=== PATIENT | female | born 1955 | race Caucasian/White ===

== ENCOUNTER 2018-09-03 15:15 | Emergency (ER) | payer OTHER ==
--- NOTE | 2018-09-03 15:54 | EDPHYS ---
Physician Documentation [facility] Name: Marycarmen Garner Age: 62 yrs Sex: Female : 1955 Arrival Date: 09/03/2018 Time: 15:19 Bed 16 Private MD: ED Physician Sukh Quinteros HPI: 09/03 15:46 This 62 yrs old Female presents to ER via Ambulatory with complaints of Neck cp Pain, <24hrs Old. 15:46 The patient or guardian complains of mass behind left ear. cp 15:47 The symptoms are located behind left ear. Onset: The symptoms/episode began/occurred at an unknown time. became worse over past couple months. Associated signs and symptoms: Pertinent negatives: fever, difficulty swallowing. Patient reports history of multiple facial skin cancers with removal 18 years ago. Historical: - Allergies: 15:27 No Known Allergies; sv - PMHx: 15:27 None; sv - PSHx: 15:27 Cholecystectomy; Tubal ligation; sv - Immunization history:: Flu vaccine is up to date. - Social history:: Smoking status: Patient uses tobacco products, smokes one-half pack cigarettes per day. - Ebola Screening: : No symptoms or risks identified at this time. ROS: 15:50 All other systems are negative. cp Exam: 15:52 Constitutional: The patient appears in no acute distress, alert, awake, non-toxic, well cp developed, well nourished. 15:52 Head/Face: Normocephalic, atraumatic. cp 15:52 Eyes: Periorbital structures: appear normal, Conjunctiva: normal, no exudate, no injection, Sclera: no appreciated abnormality, Lids and lashes: appear normal, bilaterally. 15:52 ENT: External ear(s): are unremarkable, Ear canal(s): are normal, clear, TM's: dullness, bilaterally, Nose: is normal, Mouth: Lips: moist, Posterior pharynx: Airway: no evidence of obstruction, patent, swelling, is not appreciated, erythema, is not appreciated, exudate, is not appreciated. 15:52 Neck: Lymph nodes: lymphadenopathy is appreciated, anterior cervical nodes, noted raised flesh colored mass with mild tenderness to palpation noted behind left ear . 15:52 Chest/axilla: Inspection: normal, Palpation: is normal, no crepitus, no tenderness. 15:52 Cardiovascular: Rate: tachycardic, Rhythm: regular. 15:52 Respiratory: the patient does not display signs of respiratory distress, Respirations: normal, no use of accessory muscles, no retractions, no splinting, no tachypnea, labored breathing, is not present, Breath sounds: are clear throughout, no decreased breath sounds, no stridor, no wheezing. 15:52 Abdomen/GI: Exam negative for discomfort, distension, guarding, Inspection: abdomen appears normal. 15:52 Neuro: Orientation: to person, place \T\ time. Mentation: lucid, able to follow commands, Cerebellar function: is grossly normal, Motor: moves all fours, strength is normal, Sensation: no obvious gross deficits. Vital Signs: 15:27 BP 167 / 99; Pulse 102; Resp 18; Temp 98.7; Pulse Ox 100% ; Weight 49.9 kg; Height 5 sv ft. 5 in. (165.10 cm); Pain 9/10; 15:27 Body Mass Index 18.31 (49.90 kg, 165.10 cm) sv MDM: 15:33 Patient medically screened. cp 15:35 Differential diagnosis: torticollis, Whiplash Injury skin cancer, lymphadenopathy. cp 15:54 Data reviewed: vital signs, nurses notes, and as a result, I will discharge patient. cp 15:54 Counseling: I had a detailed discussion with the patient and/or guardian regarding: the cp historical points, exam findings, and any diagnostic results supporting the discharge/admit diagnosis, the need for outpatient follow up, for definitive care, a instructional services specialist, to return to the emergency department if symptoms worsen or persist or if there are any questions or concerns that arise at home. Administered Medications: No medications were administered Disposition: 16:15 Chart complete. cp Disposition: 09/03/18 15:54 Discharged to Home. Impression: Disorder of the skin and subcutaneous tissue, unspecified - Behind Left Ear. - Condition is Stable. - Discharge Instructions: Excision of Skin Lesions, Skin Biopsy. - Prescriptions for Anaprox DS 550 mg Oral Tablet - take 1 tablet by ORAL route every 12 hours As needed; 20 tablet. Keflex 500 mg Oral Capsule - take 1 capsule by ORAL route every 8 hours for 10 days; 30 capsule. - Medication Reconciliation Form, Thank You Letter, Antibiotic Education, Prescription Opioid Use form. - Follow up: Gigi Byrnes MD; When: 1 - 2 days; Reason: Recheck today's complaints. - Problem is an ongoing problem. - Symptoms are unchanged. Addendum: 09/05/2018 13:28 Co-signature as Attending Physician, Sukh Quinteros MD I agree with the assessment and k dr plan of care. Signatures: Varsha Luther RN RN Sukh Quinteros MD MD [facility] Paulino Khan PA PA cp Liudmila Medina, JOSEPH RN hb Corrections: (The following items were deleted from the chart) 09/03 16:10 15:54 09/03/2018 15:54 Discharged to Home. Impression: Disorder of the skin and hb subcutaneous tissue, unspecified - Behind Left Ear. Condition is Stable. Forms are Medication Reconciliation Form, Thank You Letter, Antibiotic Education, Prescription Opioid Use. Follow up: Gigi Byrnes; When: 1 - 2 days; Reason: Recheck today's complaints. Problem is an ongoing problem. Symptoms are unchanged. cp
--- NOTE | 2018-09-03 15:54 | ER ---
Nurse's Notes [facility] Name: Marycarmen Garner Age: 62 yrs Sex: Female : 1955 Arrival Date: 09/03/2018 Time: 15:19 Bed 16 Private MD: Diagnosis: Disorder of the skin and subcutaneous tissue, unspecified-Behind Left Ear Presentation: 09/03 15:26 Presenting complaint: Patient states: "spot behind my year that I've had for years but sv for the past couple months it has been hurting and making my neck hurt.". Transition of care: patient was not received from another setting of care. Care prior to arrival: None. 15:26 Method Of Arrival: Ambulatory sv 15:26 Acuity: GABBI 3 sv Historical: - Allergies: 15:27 No Known Allergies; sv - PMHx: 15:27 None; sv - PSHx: 15:27 Cholecystectomy; Tubal ligation; sv - Immunization history:: Flu vaccine is up to date. - Social history:: Smoking status: Patient uses tobacco products, smokes one-half pack cigarettes per day. - Ebola Screening: : No symptoms or risks identified at this time. Screenin:46 Abuse screen: Denies threats or abuse. Denies injuries from another. Nutritional aj1 screening: No deficits noted. Tuberculosis screening: No symptoms or risk factors identified. Assessment: 15:46 General: Appears in no apparent distress. uncomfortable, Behavior is calm, cooperative, aj1 appropriate for age. Pain: Complains of pain in neck Pain does not radiate. Pain currently is 9 out of 10 on a pain scale. Quality of pain is described as sharp, Pain began 2 months ago Is continuous. Neuro: Level of Consciousness is awake, alert, obeys commands. Cardiovascular: Patient's skin is warm and dry. Respiratory: Airway is compromised Respiratory effort is even, unlabored, Respiratory pattern is regular, symmetrical. GI: No signs and/or symptoms were reported involving the gastrointestinal system. : No signs and/or symptoms were reported regarding the genitourinary system. EENT: No signs and/or symptoms were reported regarding the EENT system. Derm: No signs and/or symptoms reported regarding the dermatologic system. Skin is pink, warm \\T\\ dry. normal. Musculoskeletal: Circulation, motion, and sensation intact. Range of motion: intact in all extremities. Vital Signs: 15:27 BP 167 / 99; Pulse 102; Resp 18; Temp 98.7; Pulse Ox 100% ; Weight 49.9 kg; Height 5 sv ft. 5 in. (165.10 cm); Pain 9/10; 15:27 Body Mass Index 18.31 (49.90 kg, 165.10 cm) sv ED Course: 15:19 Patient arrived in ED. as 15:27 Triage completed. sv 15:28 Arm band placed on left wrist. sv 15:33 Paulino Khan PA is PHCP. cp 15:33 Sukh Quinteros MD is Attending Physician. cp 15:46 Adela Lanier, RN is Primary Nurse. aj1 15:46 Patient has correct armband on for positive identification. Bed in low position. Call aj1 light in reach. Side rails up X 1. 15:46 No provider procedures requiring assistance completed. aj1 15:51 Gigi Byrnes MD is Referral Physician. cp Administered Medications: No medications were administered Outcome: 15:54 Discharge ordered by MD. cp 16:10 Patient left the ED. hb Signatures: Aedla Lanier, RN RN aj1 Varsha Luther RN RN Izabel Aldana as Paulino Khan PA PA cp Baxter, Heather, RN RN hb Corrections: (The following items were deleted from the chart) 15:29 15:27 BP 180 / 102; Pulse 102bpm; Resp 18bpm; Pulse Ox 100%; Temp 98.7F; 49.9 kg; sv Height 5 ft. 5 in.; BMI: 18.3; Pain 9/10; sv
== END 2018-09-03 16:10 | disposition home or self-care (01) ==
LOC: ER 15:15
DX: L98.8 Other specified disorders of the skin and subcutaneous tissue (principal); F17.210 Nicotine dependence, cigarettes, uncomplicated; Z85.828 Personal history of other malignant neoplasm of skin
CPT/HCPCS: 99281

== ENCOUNTER 2022-05-06 13:57 | Inpatient (IN) | payer OTHER ==
--- NOTE | 2022-05-06 14:14 | ER ---
Nurse's Notes [facility] Name: Marycarmen Garner Age: 66 yrs Sex: Female : 1955 Arrival Date: 05/06/2022 Time: 14:01 Bed 8 Private MD: Diagnosis: ST elevation (STEMI) myocardial infarction of inferior wall Presentation: 05/06 14:03 Chief complaint: Patient states: Chest pain and not feeling well that began 30 minutes ss ago. Coronavirus screen: Client denies travel out of the [place] in the last 14 days. Ebola Screen: Patient denies exposure to infectious person. Patient denies travel to an Ebola-affected area in the 21 days before illness onset. Initial Sepsis Screen: Does the patient meet any 2 criteria? No. Patient's initial sepsis screen is negative. Does the patient have a suspected source of infection? No. Patient's initial sepsis screen is negative. Risk Assessment: Do you want to hurt yourself or someone else? Patient reports no desire to harm self or others. Onset of symptoms was May 06, 2022. Care prior to arrival: Medication(s) given: ASA 324 mg, Fentanyl 100 mcg IV initiated. 18 GA, in the left antecubital area. 14:03 Method Of Arrival: EMS: [facility] 14:03 Acuity: GABBI 1 ss Historical: - Allergies: 14:06 No Known Allergies; ss - PMHx: 14:06 None; ss - Immunization history:: Client reports receiving the 2nd dose of the Covid vaccine. - Social history:: Smoking status: Patient denies any tobacco usage or history of. - Family history:: not pertinent. - Hospitalizations: : No recent hospitalization is reported. Screenin:25 Abuse screen: Denies threats or abuse. Nutritional screening: No deficits noted. 6 Tuberculosis screening: No symptoms or risk factors identified. Fall Risk None identified. Assessment: 14:22 General: Appears in no apparent distress. uncomfortable, slender, well developed, [facility] Behavior is calm, cooperative. Pain: Pain radiates to left arm Pain currently is 8 out of 10 on a pain scale. Quality of pain is described as aching, dull, Pain began suddenly, 1 hour ago. Cardiovascular: Reports chest pain, Denies fatigue, lightheadedness, nausea, palpitations, Heart tones present Capillary refill < 3 seconds Pulses are all present. Rhythm is regular. Vital Signs: 14:03 BP 168 / 113; Pulse 78; Resp 18; Temp 97.7(TE); Pulse Ox 100% on R/A; Weight 43 kg; ss 14:23 BP 152 / 87; Pulse 86; Resp 18; Temp 97.7(O); Pulse Ox 96% on 2 lpm NC; Pain 8/10; jh6 ED Course: 14:00 Maintain EMS IV. Dressing intact. Good blood return noted. Site clean \T\ dry. Gauge \T\ 6 site: 18g lt ac. 14:01 Patient arrived in ED. ss 14:01 Marcos Vásquez MD is Attending Physician. rn 14:06 Triage completed. ss 14:06 Arm band placed on right wrist. 14:10 Patient has correct armband on for positive identification. Client placed on continuous 6 cardiac and pulse oximetry monitoring. NIBP monitoring applied. electronic device monitor on. Pulse ox on. NIBP on. 14:13 Aristides Vásquez MD is Hospitalizing Provider. rn 14:21 Carol Dubois, JOSEPH is Primary Nurse. [facility] 14:25 Inserted saline lock: 18 gauge in right antecubital area, using aseptic technique. 6 Blood collected. Oxygen administration via nasal cannula \T\ 2L/min. 14:26 No provider procedures requiring assistance completed. 6 14:28 XRAY Chest (1 view) In Process Unspecified. EDMS Administered Medications: 14:21 Drug: Brilinta - Ticagrelor 180 mg Route: PO; [facility] 14:27 Follow up: Response: No adverse reaction [facility] Medication: 14:27 VIS not applicable for this client. [facility] Outcome: 14:13 Decision to Hospitalize by Provider. rn 14:28 Patient left the ED. [facility] Signatures: Dispatcher [employer] EDMS Marcos Vásquez MD MD rn Smirch, Shelby, RN RN Carol Dubois, JOSEPH RN 6 Corrections: (The following items were deleted from the chart) 14:07 14:03 Care prior to arrival: Medication(s) given: ASA 324 mg IV initiated. 18 GA, in the left antecubital area,
--- NOTE | 2022-05-06 14:14 | EDPHYS ---
Physician Documentation [facility] Name: Marycarmen Garner Age: 66 yrs Sex: Female : 1955 Arrival Date: 05/06/2022 Time: 14:01 Bed 8 Private MD: ED Physician Marcos Vásquez HPI: 05/06 14:03 This 66 yrs old Female presents to ER via Unassigned with complaints of chest pain. rn 14:03 The patient or guardian reports chest pain that is located primarily in the substernal rn area. Onset: 30 minute(s) ago. The pain radiates to both arms. Associated signs and symptoms: Pertinent positives: diaphoresis, dizziness, nausea, Pertinent negatives: abdominal pain. The chest pain is described as a heaviness, squeezing. Duration: The patient or guardian reports a single episode. Modifying factors: The symptoms are alleviated by ASA, fentanyl. Severity of pain: At its worst the pain was moderate in the emergency department the pain has improved. The patient has not experienced similar symptoms in the past. The patient has not recently seen a physician. Pt reports 30 min of chest pain, pressure with radiation to both arms, + diaphoresis and nausea. Given aspirin and fentanyl with some improvement. No known medical problems and no meds.. Historical: - Allergies: 14:06 No Known Allergies; ss - PMHx: 14:06 None; ss - Immunization history:: Client reports receiving the 2nd dose of the Covid vaccine. - Social history:: Smoking status: Patient denies any tobacco usage or history of. - Family history:: not pertinent. - Hospitalizations: : No recent hospitalization is reported. ROS: 14:10 Constitutional: Negative for fever, chills, and weight loss, Eyes: Negative for injury, rn pain, redness, and discharge, Neck: Negative for injury, pain, and swelling, Cardiovascular: + chest pain Respiratory: Negative for shortness of breath, cough, wheezing, and pleuritic chest pain, Abdomen/GI: + nausea Back: Negative for injury and pain, MS/Extremity: Negative for injury and deformity, Skin: Negative for injury, rash, and discoloration, Neuro: Negative for headache, weakness, numbness, tingling, and seizure. Exam: 14:10 Constitutional: This is a well developed, well nourished patient who is awake, alert, rn appears anxious Head/Face: Normocephalic, atraumatic. Eyes: Periorbital areas with no swelling, redness, or edema. Cardiovascular: Regular rate, irregular rhythm. No pulse deficits. Respiratory: No increased work of breathing, no retractions or nasal flaring. Abdomen/GI: Soft, non-tender Skin: Warm, diaphoretic MS/ Extremity: Pulses equal, no cyanosis. Neurovascular intact. Full, normal range of motion. Equal circumference. Neuro: Awake and alert, GCS 15 Vital Signs: 14:03 BP 168 / 113; Pulse 78; Resp 18; Temp 97.7(TE); Pulse Ox 100% on R/A; Weight 43 kg; ss 14:23 BP 152 / 87; Pulse 86; Resp 18; Temp 97.7(O); Pulse Ox 96% on 2 lpm NC; Pain 8/10; jh6 MDM: 14:02 Patient medically screened. rn 14:10 Differential diagnosis: acute myocardial infarction, coronary artery disease stable rn angina, unstable angina. HEART Score: History: Highly Suspicious (2), ECG: Significant ST-deviation (2), Age: > or = 65 years (2), Risk Factors: No Risk Factors Known (0), Troponin: < or = 1 x Normal Limit (0), Total Score = 6. The patient was not given aspirin in the Emergency Department. Administered by EMS. Data reviewed: vital signs, nurses notes, EKG, and as a result, I will admit patient. Counseling: I had a detailed discussion with the patient and/or guardian regarding: the historical points, exam findings, and any diagnostic results supporting the discharge/admit diagnosis, the need for further work-up and treatment in the hospital. ED course: Consulted with Dr. Jasso, kvng ambrosio 180 right now, and he will start heparin in [facility], going straight to [facility] now. . 05/06 14:02 Order name: Basic Metabolic Panel rn 05/06 14:02 Order name: CBC with Diff rn 05/06 14:02 Order name: Troponin HS rn 05/06 14:02 Order name: XRAY Chest (1 view) rn 05/06 14:02 Order name: BNP rn 05/06 14:02 Order name: SARS-COV-2 RT PCR (Document "Date of Onset" if Symptomatic) rn 05/06 14:02 Order name: EKG; Complete Time: 14:03 rn 05/06 14:02 Order name: Cardiac monitoring; Complete Time: 14:07 rn 05/06 14:02 Order name: EKG - Nurse/Tech; Complete Time: 14:07 rn 05/06 14:02 Order name: IV Saline Lock; Complete Time: 14:07 rn 05/06 14:02 Order name: Labs collected and sent; Complete Time: 14: rn 05/06 14:02 Order name: O2 Per Protocol; Complete Time: 14: rn 05/06 14:02 Order name: O2 Sat Monitoring; Complete Time: 14:07 rn Administered Medications: 14:21 Drug: Brilinta - Ticagrelor 180 mg Route: PO; [facility] 14:27 Follow up: Response: No adverse reaction [facility] Disposition Summary: 05/06/22 14:13 Hospitalization Ordered Hospitalization Status: Inpatient Admission rn Provider: Aristides Vásquez rn Location: Intensive Care Unit rn Condition: Stable rn Problem: new rn Symptoms: have improved rn Bed/Room Type: Standard rn Room Assignment: rn Diagnosis - ST elevation (STEMI) myocardial infarction of inferior wall rn Forms: - Medication Reconciliation Form rn - SBAR form rn Signatures: Dispatcher [employer] EDMarcos Garnica MD MD rn Smirch, Shelby, RN RN ss Hastedt, Jennifer RN RN jh6
[2022-05-06] MEDS ORDERED: TICAGRELOR 90 MG TABLET PO ONE ×2 (14:15→14:17)
[2022-05-06 14:38] LABS: Absolute Lymphocytes (CBC) 1.8 K/uL (0.7-4.9); Hematocrit 33.6 % (36.0-45.0); Lymphocytes % 14.4 % (15.3-44.8); MPV 8.5 fL (7.6-11.3)
--- NOTE | 2022-05-06 14:38 | RAD REPORT ---
EXAM DESCRIPTION: RAD - Chest Single View - 05/06/2022 2:26 pm CLINICAL HISTORY: CHEST PAIN Chest pain. COMPARISON: Chest Pa And Lat (2 Views) dated 10/20/2017; Chest Single View dated 10/19/2017 FINDINGS: Portable technique limits examination quality. The lungs are emphysematous but grossly clear. The heart is normal in size. No displaced fractures. IMPRESSION: Prominent COPD.
[2022-05-06] MEDS ORDERED: NITROGLYCERIN 100 MCG/ML SYR (for cath lab use only) IV ONE (14:42)
[2022-05-06] MEDS ORDERED: HEPARIN 5000 UNIT/ML 1 ML VIAL ONE (14:42)
[2022-05-06] MEDS ORDERED: FENTANYL CITR 100 MCG/2 ML ONE (14:42)
[2022-05-06] MEDS ORDERED: ATROPINE SULF 1 MG/10 ML SYR IV ONE (14:42)
[2022-05-06] MEDS ORDERED: HEPARIN 10,000 UNIT/10 ML VIAL IV ONE (14:42)
[2022-05-06] MEDS ORDERED: VERAPAMIL HCL 10 MG/4 ML VIAL IV ONE (14:42)
[2022-05-06] MEDS ORDERED: NA CHLORIDE 0.9% 500 ML ONE (14:48)
[2022-05-06 14:53] LABS: Troponin High Sensitivity 117.5 pg/mL (<58.9)
[2022-05-06] MEDS ORDERED: ACETAMINOPHEN 500 MG TAB PO PRN (14:59)
[2022-05-06] MEDS ORDERED: ALBUTEROL INHALER 60 PUFF/8 GM IH PRN (15:04)
[2022-05-06] MEDS ORDERED: HEPA 1000U/500MLS 1,000 UNIT/500 ML BAG IV ONE (15:04)
[2022-05-06] MEDS ORDERED: HYDRALAZINE HCL 20 MG/ML VIAL IV PRN (15:06)
--- NOTE | 2022-05-06 15:06 | P.HP ---
Certification for Inpatient Patient admitted to: Inpatient With expected LOS: >2 Midnights Patient will require the following post-hospital care: None Practitioner: I am a practitioner with admitting privileges, knowledge of patient current condition, hospital course, and medical plan of care. Services: Services provided to patient in accordance with Admission requirements found in Title 42 Section 412.3 of the Code of Federal Regulations Patient History Date of Service: 05/06/22 Reason for admission: Chest pain History of Present Illness: Patient is a 66-year-old female with a past medical history significant for COPD, hepatitis B, hepatitis C, nicotine dependence who presents with complaint of chest pain located in the substernal chest area. Patient reported that she was driving today when she suddenly started having chest pain which radiated to her bilateral shoulders and arms. Patient rated pain as 10/10 and described pain as pressure\squeezing in quality. Patient reports associated signs and symptoms of nausea, dizziness, Shortness of breath, headache and diaphoresis. Patient denies any other signs and symptoms. Symptoms are aggravated or relieved by nothing. Patient decided to present to the hospital due to worsening symptoms. Allergies No Known Allergies Allergy (Unverified 10/19/17 16:29) Home Medications: Albuterol Inhaler [Ventolin Inhaler*] 2 puff IH Q6H PRN #1 hfa.aer.ad 10/20/17 Albuterol Neb [Proventil 0.083% Neb Soln] 2.5 mg NEB [id number] #3 amp 10/20/17 Azithromycin [Zithromax] 500 mg PO DAILY #7 tablet 10/20/17 Budesonide/Formoterol Fumarate [Symbicort 160-4.5 Mcg Inhaler] 2 puff IH BID #3 hfa.aer.ad 10/20/17 Ipratropium Neb [Atrovent*] 0.5 mg NEB [id number] #3 amp 10/20/17 - Past Medical/Surgical History Diabetic: No Past Medical History: Patient denies medical history -: COPD -: Hepatitis B -: Hepatitis C -: Tubal Ligation - Family History Family History: Reviewed- Non-Contributory - Social History Smoking Status: Current every day smoker Smoking therapy provided: Yes Patient receptive to therapy: Yes Alcohol use: No CD- Drugs: Yes Caffeine use: No Place of Residence: Home Review of Systems General: Sweats Eyes: Unremarkable ENT: Unremarkable Respiratory: Shortness of Breath Cardiovascular: Chest Pain Gastrointestinal: Nausea Genitourinary: Unremarkable Musculoskeletal: Shoulder Pain, Arm Pain Integumentary: Unremarkable Neurological: Other (Dizziness, Headache ) Lymphatics: Unremarkable Physical Examination - Vital Signs Temperature: 97.7 F Blood Pressure: 152/87 Pulse: 86 Respirations: 18 - Physical Exam General: Alert, Oriented x3, Cooperative, Moderate distress HEENT: Normocephalic, PERRLA Neck: 2+ carotid pulse no bruit, JVD not distended Respiratory: Normal air movement Cardiovascular: Normal pulses, Regular rate/rhythm Capillary refill: <2 Seconds Gastrointestinal: Normal bowel sounds, Soft and benign Musculoskeletal: No clubbing, No contractures, No erythema Integumentary: No rashes, No breakdown, No erythema Neurological: Normal speech, Normal tone, Sensation intact Lymphatics: No axilla or inguinal lymphadenopathy - Studies Laboratory Data (last 24 hrs) 05/06/22 14:15: WBC 12.4 H, Hgb 11.7 L, Hct 33.6 L, Plt Count 240 05/06/22 14:15: Sodium 134 L, Potassium 3.0 L, BUN 12, Creatinine 0.72, Glucose 168 H Assessment and Plan - Plan --STEMI. Noted on EKG. Cardiology consulted. Patient taken emergently to [facility]. Echocardiogram pending to assess LV\valvular functions and wall motion. Telemetry to monitor for any malignant arrhythmia. Troponin elevated. We will continue to trend troponin levels. Continue heparin drip. We will await further recommendation from parachute harness rigger. --Acute pain. We will manage pain with current pain medication regimen. --Acute on chronic COPD exacerbation. Continue home medications and O2 therapy. --History of hep C\hep B. Continue supportive care. --Nicotine dependence. Patient counseled on tobacco cessation and placed on nicotine patch. --Anemia of chronic disease. H&H stable. We will continue to monitor hem oglobin and transfuse if less than 7.0. --Leukocytosis. Likely reactive. Will reassess levels in the a.m. --Severe protein calorie normal nutrition. Dietitian consulted. Will await further recommendation. --Hypokalemia. Replete as needed. --Elevated BNP. Echocardiogram pending. Further management per parachute harness rigger. -- Elevated blood pressure. No history of hypertension noted. We will manage BP with labetalol as needed. --Headache. Tylenol as needed. --DVT prophylaxis with heparin Drip Discharge Plan: Home Plan to discharge in: 72 Hours - Advance Directives Does patient have a Living Will: No Does patient have a Durable POA for Healthcare: No - Code Status/Comfort Care Code Status Assessed: Yes Code Status: Full Code Physician Review: Patient Assessed, Agree with Above Assessment and Plan Critical Care: No
[2022-05-06] MEDS ORDERED: ADENOSINE 6 MG/ 2ML VIAL IV ONE (15:08)
[2022-05-06] MEDS ORDERED: HEPARIN/D5W 25,000 UNIT/500 ML BAG IV SCH (16:00)
[2022-05-06] MEDS: IPRATROPIUM BROM 0.5MG/2.5ML NEB SCH ×2 (16:00→20:55)
--- NOTE | 2022-05-06 16:11 | CON ---
Date of Consultation: 05/06/2022 Reason For Consultation: ST elevation [place]. History Of Present Illness: A 66-year-old female presented to the emergency room with 30 minutes ons et of crushing pressure type of chest pain that radiates to the left arm. Her arm was hurting more t [place] the chest, became sweaty, nauseated and diaphoretic, presented to the emergency room. An EKG was done, showed inferior ST elevation [place]. I was contacted at 2:10 p.m., saw the patient and immediatel y took the patient to the labor standards director for emergency coronary angiogram and PCI. The patient denies havi ng any other medical history, but she smokes about 5-6 cigarettes a day. Past Medical History: None. Medications: None. Allergies: NO KNOWN DRUG ALLERGIES. Family History: No premature coronary artery disease or cancer. Social History: She is a smoker. She smokes 4-5 cigarettes a day. Does not drink or use no drugs. Review of Systems: All systems reviewed and negative except for what mentioned in HPI. Physical Examination: Vital Signs: Reviewed. Head and Neck: Pupils are equal, reactive to light. Intact eye movements. No JVD. No cervical lym phadenopathy. Neck is supple. Thyroid is not enlarged. Lungs: Clear to auscultation bilaterally. No rhonchi, rales, or crackles. No accessory muscle use. Heart: Regular rate and rhythm. No extra sounds. Abdomen: Soft, nontender. Bowel sounds positive. No organomegaly. No masses or hernia. No rigidi ty or rebound. Extremities: No clubbing, cyanosis. Intact pulses. Skin: No rash. Neurologic: Alert, awake, oriented x3. No acute focal deficits appreciated. Investigations: No blood work is back yet; however, the EKG showed inferior ST elevation [place]. Assessment And Recommendations: 1.Inferior ST elevation myocardial infarction. I loaded the patient with Brilinta 180 and aspirin a nd we will take the patient for immediate coronary angiogram and percutaneous coronary intervention o f the culprit vessel. 2.Smoker. This will be discussed further with the patient postprocedure to teen counselor her to quit smok ing. SR/MODL Voice ID: [id number] Report ID: [id number]
--- NOTE | 2022-05-06 16:17 | OP ---
Date of Procedure: 05/06/2022 Surgeon: JASON EDOUARD Procedures Performed: 1.Selective coronary angiogram. 2.PCI of mid left circumflex 100% occlusion, which is a culprit for the ST-elevation myocardial infa rction. Indication: ST-elevation myocardial infarction. It is an inferior ST elevation. Access: Right femoral artery 6-Mexican closed with 6-Mexican Angio-Seal. Complications: None. Bleeding: Less than 20 mL. Anesthesia: Total sedation time was 65 minutes and used fentanyl and Versed. Description Of Procedure: After risks, benefits, and alternatives were explained, the patient agreed to procedure and signed informed consent. The patient was brought into the cardiac catheterization laboratory in an emergency basis due to ST-elevation VT and she was prepped and draped in usual steri le fashion. Then, I accessed right femoral artery using micropuncture kit, ultrasound guidance and f luoroscopy by 6-Mexican [place] sheath and took a 6-Mexican JL4 catheter into aortic root and engaged the left main, took standard views and took a 6-Mexican JR4 catheter into the aortic root, engaged the RCA and then we gave systemic heparin to assure ACT level above 250. The patient received Brilinta and aspirin into the emergency room. I took a 6-Mexican JL4 guide into the aortic root, engaged the l eft main, took a Run-Through wire into the left main and the left circumflex passing the area of sten osis. The mid left circumflex was ballooned successfully restoring ESTHER 2 flow and then placed a 3.5 x 20 mm Synergy drug-eluting stent and there was some edge dissection distally, so I placed a 3.0 x 8 mm to overlap with the first stent and post dilated the overlap to high-pressure and gave 600 mcg o f adenosine and 20 mcg of nitroglycerin intracoronary and established ESTHER-3 flow in the vessel. The n, took standard views post procedure, they were satisfactory. I removed the catheter and the wire a nd the sheath, and used a 6-Mexican Angio-Seal with good hemostasis. Findings: 1.Left main; large, normal. 2.LAD is proximal. It is more diffuse 20% and diagonal 1 branch has 90% ostially and the rest of th e LAD looks normal. 3.Left circumflex; very large and dominant vessel with mid 100% occlusion with a thrombus formation, which is a culprit for the STEMI, status post successful PCI as above with druze of ESTHER-3 jazmin w. 4.RCA; small, non-dominant with mid diffuse 50% stenosis. Conclusion: 1.100% occlusion of the mid left circumflex, which is a dominant vessel and the culprit for the VT, status post successful PCI as above. 2.Mild coronary artery disease elsewhere. Plan: 1.Continue Brilinta, aspirin, and high-dose statin and obtain echocardiogram on her in the morning. 2.Start low-dose beta kylee 25 mg twice a day and metoprolol if possible and low-dose JO inhibito r if the blood pressure allows. SR/MODL Voice ID: [id number] Report ID: [id number]
[2022-05-06 16:50] LABS: Thyroid Stimulating Hormone 1.51 uIU/mL (0.360-3.740)
[2022-05-06] MEDS ORDERED: HOME MED 1 EA UNK [ALBUTEROL INHALER 60 PUFF/8 GM] IH PRN (16:51)
[2022-05-06] MEDS ORDERED: LABETALOL 20 MG/4ML SYRINGE IV PRN (17:22)
[2022-05-06 18:25] VITALS: BMI 16.9
[2022-05-06] MEDS: HEPARIN/D5W 25,000 UNIT/500 ML BAG IV PRN (18:27)
[2022-05-06] MEDS: METOPROLOL TAR 25 MG TAB PO SCH (18:31)
[2022-05-06] MEDS: NICOTINE 21 MG/PAT TD SCH (18:32)
[2022-05-06] MEDS: HYDROCODONE/APAP 5/325 MG TAB PO PRN (18:44)
[2022-05-06] MEDS ORDERED: CALCIUM CARBONATE CHEW 500MG TAB PO PRN (19:58)
[2022-05-06] MEDS: ONDANSETRON 4 MG/2 ML VIAL IV PRN (20:19)
[2022-05-06] MEDS: ATORVASTATIN 80 MG TAB PO SCH (20:23)
[2022-05-06] MEDS: TICAGRELOR 90 MG TABLET PO SCH (20:24)
[2022-05-06] MEDS: HOME MED 1 EA UNK (Budesonide/Formoterol Fumarate [Symbicort 160-4.5 Mcg Inhaler] 10.2 GM IH SCH (21:00)
[2022-05-07] MEDS: HEPARIN/D5W 25,000 UNIT/500 ML BAG IV PRN (00:07)
[2022-05-07] MEDS: IPRATROPIUM BROM 0.5MG/2.5ML NEB SCH ×3 (00:20→08:30)
[2022-05-07] MEDS: HYDROCODONE/APAP 5/325 MG TAB PO PRN ×3 (01:07→20:51)
[2022-05-07 05:45] LABS: Protime INR 1.1
[2022-05-07 06:30] LABS: Albumin 3.3 g/dL (3.4-5.0); Bilirubin Total 0.4 mg/dL (0.2-1.0); Phosphorus 3.1 mg/dL (2.5-4.9); Potassium 3.2 mmol/L (3.5-5.1)
[2022-05-07] MEDS ORDERED: PNEUMOCOCCAL VACCINE 0.5 ML IMVAC ONE (08:00)
[2022-05-07] MEDS ORDERED: HEPARIN 5000 UNIT/ML 1 ML VIAL SQ SCH (09:00)
[2022-05-07] MEDS: TICAGRELOR 90 MG TABLET PO SCH ×3 (09:00→20:51)
[2022-05-07] MEDS: HOME MED 1 EA UNK (Budesonide/Formoterol Fumarate [Symbicort 160-4.5 Mcg Inhaler] 10.2 GM IH SCH ×2 (09:00→21:00)
[2022-05-07] MEDS: ASPIRIN 325 MG TAB PO SCH (09:25)
[2022-05-07] MEDS: NICOTINE 21 MG/PAT TD SCH (09:26)
[2022-05-07] MEDS: METOPROLOL TAR 25 MG TAB PO SCH ×2 (09:26→17:38)
[2022-05-07] MEDS ORDERED: IPRATROPIUM BROM 0.5MG/2.5ML NEB PRN (09:30)
--- NOTE | 2022-05-07 11:08 | EKG ---
Test Date: 2022-05-06 Test Time: 13:57:09 Health Consultant: MEASUREMENT RESULTS: Intervals: Rate: 101 OR: QRSD: 80 QT: 358 QTc: 464 [place]: P: OR: QRS: 60 T: 89 INTERPRETIVE STATEMENTS: Atrial fibrillation with rapid ventricular response with premature ventricular or aberrantly conducted complexes ST elevation, consider inferior injury or acute infarct ACUTE TX / STEMI Consider right ventricular involvement in acute inferior infarct Abnormal ECG Compared to ECG 10/19/2017 13:24:47 Ventricular premature complex(es) now present ST (T wave) deviation now present Myocardial infarct finding now present Myocardial infarct finding now present Sinus rhythm no longer present Electronically Signed On 05-07-22 11:05:00 CDT by Brodie Tam
--- NOTE | 2022-05-07 12:53 | PN ---
Date of Progress Note: 05/07/2022 Subjective: Ms. Graner is 66. Came in with ST elevation myocardial infarction, underwent a circumflex stent by Dr. Jasso yesterday. Had significant amount of thrombus, remained on heparin. Continues to have some bilateral arm pain that is mild. Objective: Vital Signs: Stable. She was afebrile. Chest: Clear. Cardiac: Normal. : Her right groin entry site is normal without any hematoma. Extremities: She has good distal pulses. Impression And Plan: Status post circumflex stent with residual thrombus. Continue heparin. Contin ue aspirin. Continue Brilinta, Lipitor, and metoprolol. We will consider discontinuing heparin some time this evening if she is pain-free, but I will keep the patient at least till tomorrow before we send her home. KAVYA/PAIGE Voice ID: [id number] Report ID: [id number]
--- NOTE | 2022-05-07 13:33 | P.PN ---
Subjective Date of Service: 05/07/22 Chief Complaint: Chest pain Cardiac catheterization yesterday with circumflex stented. Patient also noted to have about vessel disease for which medical therapy has been recommended. She is complaining of nausea. Blood pressure has been stable.. Physical Examination - Vital Signs Temperature: 97.3 F Blood Pressure: 104/67 Pulse: 75 Respirations: 22 Pulse Ox (%): 99 - Physical Exam General: Alert, In no apparent distress, Oriented x3 HEENT: Mucous membr. moist/pink Neck: Supple, JVD not distended Respiratory: Clear to auscultation bilaterally, Normal air movement Cardiovascular: No edema, Regular rate/rhythm, Normal S1 S2, No murmurs Capillary refill: <2 Seconds Gastrointestinal: Normal bowel sounds, Soft and benign, Non-distended, No tenderness Musculoskeletal: No swelling, No tenderness, Other (Right groin cardiac cath entry site-no bleeding) Integumentary: No rashes, No erythema Neurological: Normal speech, Normal strength at 5/5 x4 extr, Cranial nerves 3-12 intact - Studies Laboratory Data (last 24 hrs) 05/06/22 14:15: WBC 12.4 H, Hgb 11.7 L, Hct 33.6 L, Plt Count 240 05/06/22 14:15: Sodium 134 L, Potassium 3.0 L, BUN 12, Creatinine 0.72, Glucose 168 H Assessment And Plan - Current Problems (Diagnosis) (1) STEMI (ST elevation myocardial infarction) Current Visit: Yes Status: Acute (2) COPD (chronic obstructive pulmonary disease) Current Visit: Yes Status: Acute - Plan Status post cardiac catheterization and circumflex artery stented. Patient with other vessel disease. Continue aspirin, Brilinta, Lipitor, metoprolol. Monitor blood pressure. On heparin drip to be discontinued tonight per cardiology. Continue bronchodilators. Leukocytosis is likely reactive. Patient is currently normotensive. Diet as tolerated. Physician Review: Patient Assessed, Agree with Above Assessment and Plan
[2022-05-07] MEDS: ONDANSETRON 4 MG/2 ML VIAL IV PRN ×2 (13:51→20:50)
[2022-05-07] MEDS ORDERED: POTASSIUM CL SA 10 MEQ TAB PO ONE (18:00)
[2022-05-07 19:41] LABS: Urine Appearance Cloudy (Clear); Urine Bilirubin Negative (Negative); Urine Blood 1+ (Negative); Urine Color Yellow (Yellow); Urine Glucose Negative (Negative); Urine Protein Trace (Negative); Urine Specific Gravity >=1.030 (1.005-1.030)
[2022-05-07 19:45] LABS: Urine Microscopic Reflex ORDER UMIC
[2022-05-07 19:48] LABS: Urine Bacteria NONE SEEN /HPF (<20); Urine Mucus 1+ /HPF (NONE SEEN)
[2022-05-07] MEDS: ATORVASTATIN 80 MG TAB PO SCH (20:51)
[2022-05-08 05:12] LABS: Absolute Lymphocytes (CBC) 1.3 K/uL (0.7-4.9); Hematocrit 32.2 % (36.0-45.0); Lymphocytes % 18.2 % (15.3-44.8); MPV 8.5 fL (7.6-11.3); RBC Red Blood Cell Count 3.69 M/uL (3.86-4.86)
[2022-05-08 05:29] LABS: Potassium 4.3 mmol/L (3.5-5.1)
[2022-05-08] MEDS: METOPROLOL TAR 25 MG TAB PO SCH (06:00)
--- NOTE | 2022-05-08 08:15 | ECHO ---
HEIGHT: 5 ft 4 in WEIGHT: 98 lb 11.2 oz DATE OF STUDY: 05/07/[address]: Case Cid 2-DIMENSIONAL: YES M.MODE: YES DOPPLER: YES COLOR FLOW: YES TDS: PORTABLE: YES DEFINITY: BUBBLE STUDY: DIAGNOSIS: NON ST ELEVATION MYOCARDIAL INFARCTION CARDIAC HISTORY: CATHERIZATION: YES SURGERY: NO PROSTHETIC VALVE: NO PACEMAKER: NO MEASUREMENTS (cm) DIASTOLIC (NORMALS) SYSTOLIC (NORMALS) IVSd 1.0 (0.6-1.2) LA Diam 2.4 (1.9-4.0) LVEF 45-50% LVIDd 3.1 (3.5-5.7) LVIDs 2.4 (2.0-3.5) %FS 24% LVPWd 1.0 (0.6-1.2) Ao Diam 2.3 (2.0-3.7) 2 DIMENSIONAL ASSESSMENT: RIGHT ATRIUM: NORMAL LEFT ATRIUM: NORMAL RIGHT VENTRICLE: NORMAL LEFT VENTRICLE: NORMAL TRICUSPID VALVE: NORMAL MITRAL VALVE: NORMAL PULMONIC VALVE: NORMAL AORTIC VALVE: NORMAL PERICARDIAL EFFUSION: NONE AORTIC ROOT: NORMAL LEFT VENTRICULAR WALL MOTION: MILD GLOBAL HYPOKINESIS DOPPLER/COLOR FLOW: NORMAL COMMENTS: MILD GLOBAL HYPOKINESIS. EJECTION FRACTION 45-50%. NO EFFUSION. TECHNOLOGIST: DENIA LEONARD
[2022-05-08] MEDS: NICOTINE 21 MG/PAT TD SCH (08:18)
[2022-05-08] MEDS: TICAGRELOR 90 MG TABLET PO SCH (08:18)
[2022-05-08] MEDS: ASPIRIN 325 MG TAB PO SCH (08:19)
[2022-05-08 08:29] VITALS: O2SAT 99
[2022-05-08] MEDS: HYDROCODONE/APAP 5/325 MG TAB PO PRN (08:34)
--- NOTE | 2022-05-08 08:50 | P.DS ---
Admission Date: 05/06/22 Discharge Date: 05/08/22 Disposition: ROUTINE DISCHARGE Discharge Condition: FAIR Reason for Admission: Chest pain - Problems (1) STEMI (ST elevation myocardial infarction) Current Visit: Yes Status: Acute (2) COPD (chronic obstructive pulmonary disease) Current Visit: Yes Status: Acute Brief History of Present Illness: Patient is a 66-year-old female with a past medical history significant for COPD, hepatitis B, hepatitis C, nicotine dependence who presents with complaint of chest pain located in the substernal chest area. Patient reported that she was driving when she suddenly started experiencing chest pain which radiated to her bilateral shoulders and arms. Patient rated pain as 10/10 and described pain as pressure\squeezing in quality. Patient reported associated signs and symptoms of nausea, dizziness, Shortness of breath, headache and diaphoresis. She presented to the emergency department where EKG demonstrated STEMI. STEMI protocol initiated, cardiology informed and patient hospitalized for further management. Hospital Course: Patient seen by cardiology, started on heparin drip and and emergent cardiac catheterization performed. 100% occlusion of the left mid circumflex artery noted which was stented Patient placed on aspirin and Brilinta. Cardiology report other cardiac vessel diseases recommended medical management. She was also on Lipitor and metoprolol Her blood pressure was soft She was monitored overnight with no events. Patient states she feels better today though noted mild lingering chest pain. Patient is currently tolerating diet, she is ambulatory. Seen by cardiology-Dr. Tam today and deemed stable for discharge. Vital Signs/Physical Exam: Temp Pulse Resp BP Pulse Ox 96.7 F L 74 19 93/49 L 100 05/08/22 04:00 05/08/22 06:00 05/08/22 06:00 05/08/22 06:00 05/08/22 06:00 General: Alert, In no apparent distress, Oriented x3 HEENT: Mucous membr. moist/pink Neck: Supple, JVD not distended Respiratory: Clear to auscultation bilaterally, Normal air movement Cardiovascular: No edema, Regular rate/rhythm, Normal S1 S2 Gastrointestinal: Soft and benign, Non-distended Musculoskeletal: No swelling Integumentary: No rashes, No erythema Neurological: Normal strength at 5/5 x4 extr Laboratory Data at Discharge: WBC 7.2 K/uL (4.3-10.9) D 05/08/22 04:39 Hgb 11.3 g/dL (12.0-15.0) L 05/08/22 04:39 Hct 32.2 % (36.0-45.0) L 05/08/22 04:39 Plt Count 210 K/uL (152-406) 05/08/22 04:39 PT 12.1 SECONDS (9.5-12.5) 05/07/22 04:24 INR 1.10 05/07/22 04:24 APTT Cancelled 05/07/22 18:45 Sodium 131 mmol/L (136-145) L 05/08/22 04:39 Potassium 4.3 mmol/L (3.5-5.1) 05/08/22 04:39 BUN 15 mg/dL (7-18) 05/08/22 04:39 Creatinine 0.61 mg/dL (0.55-1.3) 05/08/22 04:39 Glucose 87 mg/dL (74-106) 05/08/22 04:39 Phosphorus 3.1 mg/dL (2.5-4.9) 05/07/22 04:24 Magnesium 2.0 mg/dL (1.8-2.4) 05/07/22 04:24 Total Bilirubin 0.4 mg/dL (0.2-1.0) 05/07/22 04:24 AST 184 U/L (15-37) H 05/07/22 04:24 ALT 30 U/L (12-78) 05/07/22 04:24 Alkaline Phosphatase 140 U/L (45-117) H 05/07/22 04:24 Triglycerides 68 mg/dL (<150) 05/07/22 04:24 Cholesterol 202 mg/dL (<200) H 05/07/22 04:24 HDL Cholesterol 62 mg/dL (40-60) H 05/07/22 04:24 Cholesterol/HDL Ratio 3.26 05/07/22 04:24 Home Medications: Aspirin [Aspirin EC 81 MG] 81 mg PO DAILY #30 tablet.dr 05/08/22 Atorvastatin Calcium [Lipitor] 80 mg PO BEDTIME #30 tab 05/08/22 Budesonide/Formoterol Fumarate [Symbicort 160-4.5 Mcg Inhaler] 2 puff IH BID #1 hfa.aer.ad 05/08/22 Metoprolol Tartrate [Lopressor*] 25 mg PO BID 6AM 6PM #30 tab 05/08/22 Nicotine [Nicoderm*] 21 mg TD DAILY #30 patch.td24 05/08/22 Ticagrelor [Brilinta*] 90 mg PO BID #60 tablet 05/08/22 New Medications: Aspirin [Aspirin EC 81 MG] 81 mg PO DAILY #30 tablet. Ticagrelor [Brilinta*] 90 mg PO BID #60 tablet Atorvastatin Calcium [Lipitor] 80 mg PO BEDTIME #30 tab Metoprolol Tartrate [Lopressor*] 25 mg PO BID 6AM 6PM #30 tab Nicotine [Nicoderm*] 21 mg TD DAILY #30 patch.td24 Budesonide/Formoterol Fumarate [Symbicort 160-4.5 Mcg Inhaler] 2 puff IH BID #1 hfa.aer.ad Physician Discharge Instructions: Referral to Cardiac Rehab. Diagnosis; STEMI 121.09 Diet: AHA Activity: Ad rm Followup: NONE,NONE [Primary Care Provider] - Jamie Jasso MD [ACTIVE - CAN ADMIT] - 1 Week Time spent managing pt's care (in minutes): 38
[2022-05-08] MEDS: HOME MED 1 EA UNK (Budesonide/Formoterol Fumarate [Symbicort 160-4.5 Mcg Inhaler] 10.2 GM IH SCH (09:00)
[2022-05-08 11:06] VITALS: TEMP 96.9
[2022-05-08 11:07] VITALS: BP 98/77
--- NOTE | 2022-05-09 20:44 | PN ---
Date of Progress Note: 05/08/2022 Ms. Garner came in with an ST-elevation myocardial infarction, underwent an emergency circumflex stent. Has a lot of thrombosis. She is now on Brilinta, Lipitor, heparin, and metoprolol. Asymptomatic, sinus rhythm. Groin site is intact. Good distal pulses. We will continue heparin for another 24 ho urs and will discontinue her later on Brilinta, Lipitor, metoprolol, and aspirin. She will follow up with us in the office in 2 weeks. Echocardiogram showed an ejection fraction of 45% to 50% with mil d global hypokinesis. Continue present regimen for now. Case was discussed with Dr. Vásquez. KAVYA/PAIGE Voice ID: [id number] Report ID: [id number]
== END 2022-05-08 10:50 | disposition home or self-care (01) | DRG 246 ==
LOC: ER 13:57 → ERHOLD 14:54 → 3RD-ICU 18:00
PROVIDERS: ADMIT Hospitalist; ATTEND Hospitalist
PROC: 027035Z Dilation of Coronary Artery, One Artery with Two Drug-eluting Intraluminal Devices, Percutaneous Approach (ICD-10-PCS; principal; 2022-05-06)
PROC: B2011ZZ Plain Radiography of Multiple Coronary Arteries using Low Osmolar Contrast (ICD-10-PCS; 2022-05-06)
DX: I21.21 ST elevation (STEMI) myocardial infarction involving left circumflex coronary artery (principal); E43 Unspecified severe protein-calorie malnutrition; B18.1 Chronic viral hepatitis B without delta-agent; J44.1 Chronic obstructive pulmonary disease with (acute) exacerbation; Z68.1 Body mass index [BMI] 19.9 or less, adult; I25.10 Atherosclerotic heart disease of native coronary artery without angina pectoris; B18.2 Chronic viral hepatitis C; D63.8 Anemia in other chronic diseases classified elsewhere; E87.6 Hypokalemia; R51.9 Headache, unspecified; F17.210 Nicotine dependence, cigarettes, uncomplicated; Z23 Encounter for immunization; Z20.822 Contact with and (suspected) exposure to COVID-19
CPT/HCPCS: 36415; 71045; 80048; 80053; 80061; 81003; 81015; 83735; 83880; 84100; 84439; 84443; 84484; 85025; 85347; 85610; 85730; 90471; 93005; 93306; 93454; 99285; C1725; C1760; C1893; C9600; G0269; J0153; J0360; J1644; J2405; J3010; J7040; Q9967; U0003

== ENCOUNTER 2024-11-25 10:55 | Day surgery (SDC) | payer OTHER ==
[2024-11-22 13:58] LABS: Absolute Eosinophils 0.4 K/uL (0-0.5); Absolute Lymphocytes (CBC) 1.2 K/uL (0.7-4.9); Absolute Monocytes 0.5 K/uL (0.1-1.3); Absolute Neutrophil 4.4 K/uL (1.8-8.0); Basophils % 0.5 % (0-1.3); Eosinophils % 6.9 % (0-4.4); Hematocrit 37.1 % (36.0-45.0); Hemoglobin 12.3 g/dL (12.0-15.0); Lymphocytes % 17.7 % (15.3-44.8); MCH 30.1 pg (27.0-35.0); MCV 91.1 fL (80-100); MPV 8.2 fL (7.6-11.3); Monocytes % 7.5 % (3.3-12.3); Neutrophils % 67.4 % (41.7-73.7); Platelets 212 thou/uL (152-406); RBC Red Blood Cell Count 4.07 M/uL (3.86-4.86); Red Cell Distribution Width 12.6 % (12.1-15.2)
[2024-11-22 14:05] LABS: PT Prothrombin Time 12.5 SECONDS (9.4-12.5); PTT, Activated Partial Thromb 28.9 SECONDS (24.3-36.9); Protime INR 1.12
[2024-11-22 14:11] LABS: Anion Gap 5.3 mEq/L (5.0-15.0); Potassium 3.3 mEq/L (3.5-5.1)
--- NOTE | 2024-11-22 14:54 | RAD REPORT ---
EXAM: Chest Pa And Lat (2 Views) HISTORY: 69 years Female Pre-op pending left heart catheterization COMPARISON: 05/06/2022 FINDINGS: LUNGS/PLEURA: The lungs are clear. No pleural effusions or pneumothorax. No pulmonary edema. Emphysem a. MEDIASTINUM: The mediastinal silhouette is within normal limits. CARDIAC: The cardiac silhouette is within normal limits. UPPER ABDOMEN: No significant abnormality. BONES: No acute abnormality. LINES/TUBES/OTHER: N/A IMPRESSION: No evidence of acute cardiopulmonary disease. Emphysema.
[2024-11-25] MEDS ORDERED: NA CHLORIDE 0.9% 500 ML ONE (10:59)
[2024-11-25] MEDS ORDERED: ATROPINE SULF 1 MG/10 ML SYR IV ONE (11:31)
[2024-11-25] MEDS ORDERED: HEPA 1000U/500MLS 2,000 UNIT/1,000 ML BAG IV ONE (11:31)
[2024-11-25] MEDS ORDERED: MIDAZOLAM HCL 2 MG/2 ML INJ ONE (11:31)
[2024-11-25] MEDS ORDERED: HEPARIN 10,000 UNIT/10 ML VIAL IV ONE (11:31)
[2024-11-25] MEDS ORDERED: LIDOCAINE 1% 20 ML MDV ONE (11:31)
[2024-11-25] MEDS ORDERED: HEPARIN 5000 UNIT/ML 1 ML VIAL ONE (11:32)
[2024-11-25] MEDS ORDERED: FENTANYL CITR 100 MCG/2 ML ONE (11:32)
[2024-11-25] MEDS ORDERED: CLOPIDOGREL 75 MG TABLET ONE (11:32)
[2024-11-25] MEDS ORDERED: TICAGRELOR 90 MG TABLET PO ONE (11:32)
[2024-11-25] MEDS ORDERED: ASPIRIN 325 MG TAB ONE (11:32)
[2024-11-25] MEDS ORDERED: VERAPAMIL HCL 10 MG/4 ML VIAL IV ONE (11:34)
[2024-11-25 11:46] VITALS: TEMP 97.4
[2024-11-25 14:08] VITALS: BP 112/61; O2SAT 96
--- NOTE | 2024-11-25 20:26 | OP ---
Date of Procedure: 11/25/2024 Surgeon: JASON EDOUARD Procedure Performed: Selective coronary angiogram. Indication: Chest pain with abnormal stress test. Access: Right radial artery 6-Scottish closed with TR band. Complications: None. Bleeding: Less than 50 mL. Anesthesia: Total sedation time is 1 hour. Used fentanyl and Versed. Description Of Procedure: After risks, benefits, and alternatives were explained, the patient agreed to procedure and signed informed consent. The [facility], prepped and draped in usual sterile fashion. Then, I accessed right radial artery using pedi atric micropuncture kit, placed 6-Scottish slender sheath and took 5-Scottish [place] 4 catheter into the a ortic root over a J-wire, engaged left main and took standard views and then in the RCA, took standar d views and removed the catheter and the sheath, placed TR band with good hemostasis. Findings: 1.Left main is normal. 2.LAD; proximal 20% and mid 40% at the diagonal takeoff and there is a 90% proximal diagonal disease that is unchanged from prior and the artery is small, less than 1.5 mm and still with ESTHER-3 flow. 3.Left circumflex, widely patent stent and rest of it is normal and is codominant. 4.RCA is codominant with mid diffuse and long 60% disease. Conclusion: 1.Widely patent left circumflex stent. 2.Moderate coronary artery disease elsewhere. Recommendation: Medical management as far as of the diagonal since she is not having significant sandeep st pain. We will monitor clinically. SR/MODL Voice ID: [id number] Report ID: [id number]
--- NOTE | 2024-11-26 12:52 | EKG ---
Test Date: 2024-11-22 Test Time: 14:35:12 Division Field Inspector: DEANNA MEASUREMENT RESULTS: Intervals: Rate: 66 NV: 188 QRSD: 90 QT: 412 QTc: 431 [place]: P: 63 NV: 188 QRS: 38 T: -64 INTERPRETIVE STATEMENTS: Normal sinus rhythm T wave abnormality, consider inferolateral ischemia Abnormal ECG Compared to ECG 05/06/2022 13:57:09 T-wave abnormality now present Possible ischemia now present Atrial fibrillation no longer present Ventricular premature complex(es) no longer present ST (T wave) deviation no longer present Myocardial infarct finding no longer present Myocardial infarct finding no longer present Electronically Signed On 11-26-24 12:49:22 SECURITY SUPPORT ANALYST by Alejandro Aguirre
== END 2024-11-25 14:22 | disposition home or self-care (01) ==
LOC: CCL 10:55
PROVIDERS: ATTEND Internal Medicine
DX: I25.10 Atherosclerotic heart disease of native coronary artery without angina pectoris (principal); I70.223 Atherosclerosis of native arteries of extremities with rest pain, bilateral legs; I10 Essential (primary) hypertension; Z95.5 Presence of coronary angioplasty implant and graft; Z87.891 Personal history of nicotine dependence; Z79.82 Long term (current) use of aspirin; Z79.899 Other long term (current) drug therapy
CPT/HCPCS: 93005; 85025; 80048; 36415; 85610; 85730; 71046; 93454; 76937; C1893; Q9966; J1644; J2003; J2250; J3010; J7040; 99152; 99153; J0461

== ENCOUNTER 2025-04-06 15:06 | Emergency (ER) | payer OTHER ==
[2025-04-06] MEDS ORDERED: dexAMETHasone 10 MG/ML VIAL ONE (16:41)
[2025-04-06] MEDS ORDERED: KETOROLAC 30 MG/ML INJ ONE (16:41)
[2025-04-06] MEDS ORDERED: CYCLOBENZAPRINE 10 MG TAB ONE (16:41)
[2025-04-06] MEDS ORDERED: LIDOCAINE 4% PATCH ONE (16:42)
--- NOTE | 2025-04-06 18:22 | RAD REPORT ---
EXAMINATION: CT LUMBAR SPINE WITHOUT CONTRAST CLINICAL INDICATION: Female, 69 years old. PAIN TECHNIQUE: Axial CT images were obtained through the lumbar spine in soft tissue and bone windows wit hout intravenous contrast. Coronal and Sagittal reformatted images were created from the data set. One or more of the following dose reduction techniques were used: Automated exposure control, adjustm ent of the mA and/ or kV according to patient size, and/or iterative reconstruction. Unless otherwise specified, incidental findings do not require dedicated imaging follow-up. COMPARISON: No prior exam. FINDINGS: For purposes of this dictation, it is assumed that there are 5 non rib-bearing lumbar type vertebrae, and the most caudal fully segmented lumbar vertebra is labeled L5. ALIGNMENT: The lumbar spine demonstrates normal alignment without scoliosis or spondylolisthesis. BONES: Vertebral body heights are preserved. No aggressive osseous lesions. DISCS: Intervertebral disc space heights are maintained. LEVELS: Circumferential disc bulges at L2-3, L3-4 and L4-5, contributing to mild degrees of neural fo raminal narrowing. Asymmetric left lateral zone disc extrusion at L3-4 may approximate the left L3 extraforaminal nerve root. No visualized abnormality within the spinal canal. 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 These are of uncertain clinical significance. SOFT TISSUE: No soft tissue abnormalities. IMPRESSION: No acute lumbar spine fracture or subluxation. Multilevel discogenic changes as above, including left lateral zone disc extrusion at L3-4, which may be approximating the left L3 extraforaminal nerve root. Overall mild bilateral neural foraminal narrowing at the L2-3, L3-4, and L4-5 levels. Please correlate for symptoms in those distributions.
--- NOTE | 2025-04-06 18:27 | EDPHYS ---
Physician Documentation [facility] Name: Marycarmen Garner Age: 69 yrs Sex: Female : 1955 Arrival Date: 04/06/2025 Time: 15:06 Bed Treatment Private MD: Paulino Medina HPI: 04/06 16:30 This 69 yrs old Female presents to ER via Wheelchair with complaints of Back Pain - sb4 LOWER. 16:30 The patient presents with pain that is acute, and decreased range of motion, and an sb4 injury. The symptoms are located in the low back, left low back. Onset: The symptoms/episode began/occurred 3 day(s) ago. The pain does not radiate. Associated signs and symptoms:. Associated signs and symptoms: The patient has no apparent associated signs or symptoms. The problem was sustained fell out of chair. Modifying factors: The patient symptoms are alleviated by nothing, the patient symptoms are aggravated by any movement. The patient has not experienced similar symptoms in the past. The patient has not recently seen a physician. Historical: - Allergies: 15:23 No Known Allergies; me1 - PMHx: 15:23 Myocardial infarction; Hypertensive disorder; Coronary atherosclerosis; me1 Hypercholesterolemia; - PSHx: 15:23 Stented artery; Cholecystectomy; Ligation of fallopian tube; me1 - Immunization history:: Adult Immunizations up to date. - Infectious Disease History:: Denies. - Social history:: Smoking status: Patient reports the use of cigarette tobacco products, smokes one-half pack cigarettes per day. ROS: 16:30 Constitutional: Negative for fever, chills, and weight loss, sb4 16:30 Back: Positive for injury or acute deformity, decreased range of motion, pain at rest, pain with movement, of the left low back, 16:30 All other systems are negative, Exam: 18:41 Constitutional: This is a well developed, well nourished patient who is awake, alert, sb4 and in no acute distress. Head/Face: Normocephalic, atraumatic. Eyes: Extra-ocular motions intact. Periorbital areas with no swelling, redness, or edema. ENT: Mucous membranes moist. Cardiovascular: Regular rate and rhythm with a normal S1 and S2. Respiratory: No increased work of breathing, no retractions or nasal flaring. Abdomen/GI: Soft, non-tender, no distension. Skin: Warm, dry with normal turgor. Normal color with no rashes, no lesions, and no evidence of cellulitis. 18:41 Neuro: Exam negative for acute changes, focal neuro deficits, motor deficits, sensory deficits, cerebellar deficits, altered mental status, confusion, gait abnormality, Vital Signs: 15:20 BP 145 / 84; Pulse 70; Resp 18; Temp 98.1; Pulse Ox 99% ; Weight 52.16 kg; Height 5 ft. me1 4 in. ; Pain 10/10; 17:00 BP 142 / 86; Pulse 74; Resp 20; Pulse Ox 100% on R/A; kj2 18:45 BP 138 / 82; Pulse 72; Resp 20; Temp 97.9; Pulse Ox 100% on R/A; kj2 15:20 Body Mass Index 19.74 (52.16 kg, 162.56 cm) me1 15:20 Pain Scale: Adult me1 MDM: 15:16 Medical Screening Exam initiated sb4 18:41 Data reviewed: vital signs, nurses notes, radiologic studies, and as a result, I will sb4 discharge patient. Counseling: I had a detailed discussion with the patient and/or guardian regarding the historical points, exam findings, and any diagnostic results supporting the discharge/admit diagnosis, the presence of at least one elevated blood pressure reading (>120/80) during this emergency department visit, radiology results, the need for outpatient follow up, for definitive care, spine, to return to the emergency department if symptoms worsen or persist or if there are any questions or concerns that arise at home. 04/06 16:28 Order name: CT Lumbar Spine Wo Con; Complete Time: 18:23 sb4 Administered Medications: 16:51 Drug: Ketorolac IM 30 mg IM once Route: IM; Site: right deltoid; kj2 18:45 Follow up: Response: No adverse reaction kj2 16:51 Drug: Dexamethasone IM 10 mg IM once Route: IM; Site: left deltoid; kj2 18:45 Follow up: Response: No adverse reaction kj2 16:51 Drug: Cyclobenzaprine PO 10 mg PO once Route: PO; kj2 18:44 Follow up: Response: No adverse reaction kj2 16:51 Drug: Lidoderm Topical Patch 5 % (700 mg/patch) 1 patches Topical once; leave on for 12 kj2 hours; cover most painful area; may cut into smaller pieces Route: Topical; Site: affected area; 18:44 Follow up: Response: No adverse reaction kj2 Disposition Summary: 04/06/25 18:26 Discharge Ordered Notes: Location: Home sb4 Problem: new sb4 Symptoms: have improved sb4 Condition: Stable sb4 Diagnosis - Intervertebral disc disorders with radiculopathy, lumbosacral region sb4 Followup: sb4 - With: Private Physician - When: 1 week - Reason: Further diagnostic work-up, Recheck today's complaints, Re-evaluation by your physician Discharge Instructions: - Discharge Summary Sheet sb4 - Herniated Disk sb4 - Lumbosacral Radiculopathy sb4 Forms: - Patient Portal Instructions sb4 - Leadership Thank You Letter sb4 Prescriptions: - Cyclobenzaprine 10 mg Oral Tablet - take 1 tablet ORAL route every 8 hours As needed; 30 tablet; Refills: 0, sb4 Product Selection Permitted - Diclofenac Sodium 75 mg Oral Tablet Sustained Release - take 1 tablet ORAL route 2 times per day; 30 tablet; Refills: 0, Product sb4 Selection Permitted - Prednisone 20 mg Oral Tablet - take 2 tablets ORAL route once daily for 5 days; 10 tablet; Refills: 0, Product sb4 Selection Permitted Addendum: 04/08/2025 16:36 Co-signature as Attending Physician, Paulino Stout MD I agree with the assessment and c jiang plan of care. Signatures: Dispatcher [employer] Paulino Carmichael MD MD cha Brown, Sophia, PA-C PA-C sb4 Sarah Morel, RN RN me1 Stacey Talley RN RN kj2
--- NOTE | 2025-04-06 18:27 | ER ---
Nurse's Notes [facility] Name: Marycarmen Garner Age: 69 yrs Sex: Female : 1955 Arrival Date: 04/06/2025 Time: 15:06 Bed Treatment Private MD: Diagnosis: Intervertebral disc disorders with radiculopathy, lumbosacral region Presentation: 04/06 15:20 Chief complaint: Patient states: lower back pain, 09/02 "tightness" since Friday after me1 leaning over in a lawnchair and falling sideways. Patient reports she also started furosemide 20 mg PO Q Day on Friday as well. Coronavirus screen: Vaccine status: Patient reports being unvaccinated. Ebola Screen: No symptoms or risks identified at this time. Initial Sepsis Screen: Does the patient meet any 2 criteria? No. Patient's initial sepsis screen is negative. Does the patient have a suspected source of infection? No. Patient's initial sepsis screen is negative. Risk Assessment: Do you want to hurt yourself or someone else? Patient reports no desire to harm self or others. Onset of symptoms was April 03, 2025. 15:20 Method Of Arrival: Wheelchair me1 15:20 Acuity: GABBI 3 me1 Historical: - Allergies: 15:23 No Known Allergies; me1 - PMHx: 15:23 Myocardial infarction; Hypertensive disorder; Coronary atherosclerosis; me1 Hypercholesterolemia; - PSHx: 15:23 Stented artery; Cholecystectomy; Ligation of fallopian tube; me1 - Immunization history:: Adult Immunizations up to date. - Infectious Disease History:: Denies. - Social history:: Smoking status: Patient reports the use of cigarette tobacco products, smokes one-half pack cigarettes per day. Screenin:50 [facility] ED Fall Risk Assessment (Adult) History of falling in the last 3 months, kj2 including since admission No falls in past 3 months (0 pts) Confusion or Disorientation No (0 pts) Intoxicated or Sedated No (0 pts) Impaired Gait No (0 pts) Mobility Assist Device Used No (0 pt) Altered Elimination No (0 pt) Score/Fall Risk Level 0 - 2 = Low Risk Maintained a safe environment, Hourly rounding (assess needs \\T\\ fall precautionary measures) done. Abuse screen: Denies threats or abuse. Denies injuries from another. Nutritional screening: No deficits noted. Tuberculosis screening: No symptoms or risk factors identified. Assessment: 16:52 General: Appears in no apparent distress. Behavior is cooperative. Pain: Complains of kj2 pain in left low back. Neuro: Level of Consciousness is awake, alert, obeys commands, Oriented to person, place, time, situation. Cardiovascular: Patient's skin is warm and dry. 17:58 Reassessment: Patient appears in no apparent distress at this time. Patient and/or kj2 family updated on plan of care and expected duration. Pain level reassessed. Patient is alert, oriented x 3, equal unlabored respirations, skin warm/dry/pink. 18:45 Reassessment: Patient appears in no apparent distress at this time. Patient and/or kj2 family updated on plan of care and expected duration. Pain level reassessed. Patient is alert, oriented x 3, equal unlabored respirations, skin warm/dry/pink. Vital Signs: 15:20 BP 145 / 84; Pulse 70; Resp 18; Temp 98.1; Pulse Ox 99% ; Weight 52.16 kg; Height 5 ft. me1 4 in. ; Pain 10/10; 17:00 BP 142 / 86; Pulse 74; Resp 20; Pulse Ox 100% on R/A; kj2 18:45 BP 138 / 82; Pulse 72; Resp 20; Temp 97.9; Pulse Ox 100% on R/A; kj2 15:20 Body Mass Index 19.74 (52.16 kg, 162.56 cm) me1 15:20 Pain Scale: Adult me1 ED Course: 15:11 Patient arrived in ED. cj3 15:15 Marta Meeks PA-C is PHCP. sb4 15:15 Paulino Stout MD is Attending Physician. sb4 15:23 Triage completed. me1 15:23 Arm band placed on Patient placed in waiting room. me1 16:37 Stacey Talley, JOSEPH is Primary Nurse. kj2 16:50 Patient has correct armband on for positive identification. Bed in low position. Call kj2 light in reach. Provided Education on: call light. 16:55 CT Lumbar Spine Wo Con In Process Unspecified. EDMS 18:44 No provider procedures requiring assistance completed. IV discontinued, intact, kj2 bleeding controlled, No redness/swelling at site. Pressure dressing applied. Administered Medications: 16:51 Drug: Ketorolac IM 30 mg IM once Route: IM; Site: right deltoid; kj2 18:45 Follow up: Response: No adverse reaction kj2 16:51 Drug: Dexamethasone IM 10 mg IM once Route: IM; Site: left deltoid; kj2 18:45 Follow up: Response: No adverse reaction kj2 16:51 Drug: Cyclobenzaprine PO 10 mg PO once Route: PO; kj2 18:44 Follow up: Response: No adverse reaction kj2 16:51 Drug: Lidoderm Topical Patch 5 % (700 mg/patch) 1 patches Topical once; leave on for 12 kj2 hours; cover most painful area; may cut into smaller pieces Route: Topical; Site: affected area; 18:44 Follow up: Response: No adverse reaction kj2 Medication: 17:57 VIS not applicable for this client. kj2 Outcome: 18:26 Discharge ordered by . sb4 18:44 Discharged to home ambulatory, kj2 18:44 Condition: stable 18:44 Discharge instructions given to patient, Instructed on discharge instructions, follow up and referral plans. Demonstrated understanding of instructions, follow-up care, 18:50 Patient left the ED. kj2 Signatures: Dispatcher [employer] Marta Beyer PA-C PAShmuelC sb4 Sarah Morel RN RN me1 Stacey Talley RN RN kj2 Jenna Lanier cj3
[2025-04-06 20:13] VITALS: O2SAT 100
[2025-04-06 20:15] VITALS: BP 138/82; TEMP 97.9
== END 2025-04-06 18:50 | disposition home or self-care (01) ==
LOC: ER 15:06
DX: M51.17 Intervertebral disc disorders with radiculopathy, lumbosacral region (principal); F17.210 Nicotine dependence, cigarettes, uncomplicated; W07.XXXA Fall from chair, initial encounter
CPT/HCPCS: 72131; J2003; J1100; 96372; 99284